=== PATIENT | male | born 1950 | race African-American/Black ===

== ENCOUNTER 2016-06-14 16:24 | Inpatient (IN) | payer MEDICARE ==
--- NOTE | ~2016-06-14 | CN ---
Consultation Report [facility] [address] [place]. 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 He has had excruciating pain in the past with this and required three sessions of injection of sodium thiosulfate. Two sessions were done in the operating room under anesthesia due to his excruciating pain and tenderness. He is now resolved from those areas of tenderness and pain and has some small superficial ulcers remaining, but no active calciphylaxis is noted. The patient is admitted through the emergency room with fever over 102, malaise and chills, and really no obvious lateralizing symptoms. He was having a little bit of swelling in his right lower extremity, but no increased pain, tenderness, or drainage. Workup to this point has shown gram-positive cocci in his blood cultures, and he is presently on Zosyn and vancomycin. His white blood cell counts were up at 18,000 and 19,000 respectively and platelets 110,000. Procalcitonin elevated at 68. He is subjectively much better now after therapy. He is afebrile. His chest x-ray showed no acute changes. He does not urinate and has not had any urinary output in many years. PHYSICAL EXAMINATION: GENERAL: He is a well-developed, well nourished black male, in no acute distress. HEENT: Showed no real lateralizing signs. NECK: Supple. CHEST: Clear. HEART: Regular rate and rhythm on a pacer, which was in his right chest. ABDOMEN: Soft and nontender. He has a very large, reducible 6 cm umbilical hernia defect and it is nontender. Bowel sounds were normal, and there were no real areas of tenderness in his abdomen. EXTREMITIES: Showed his left lower extremity to be relatively unremarkable with good pulses, but dry and atrophic skin noted. His right lower extremity showed nonacute clean ulcers and a clustered area on the posterior right calf that was 6.9 x 3.8 x 0.2 depth. It is nontender, there is no mass, minimal slough and good pulses on the right side. There was no palpable induration consistent with active calciphylaxis. NEUROLOGIC: The patient is alert and oriented x3, cooperative and good historian. IMPRESSION: The patient has sepsis of unclear etiology, although it is unlikely the right lower extremity is the source. He certainly has resolved quickly with antibiotic therapy. He clearly has resolving calciphylaxis in right lower extremity with residual ulcers with good positive results to intralesional injection of sodium thiosulfate. There is no obvious cellulitis noted. The recommendation will be continued local therapy, including Santyl to the ulcers and Lac-Hydrin to the dry skin. Work up other sources of sepsis, consider Consultation Report [address] [address] NAME: RUFINO ALARCON : 49 STATUS : ADM IN [facility]#: [id number] AGE: 66 ADM/REG DATE : 06/14/16 MR#: [id number] REPORT SERV DATE: 06/15/16 DICTATED BY: VIRGILIO BOWEN III DATE: 06/15/16 REPORT STATUS : Draft TRANSCRIBED BY: LULÚ DATE: 06/15/16 Infectious Disease consult, and consider CAT scan of the abdomen and pelvis to rule out some other potential etiology of the sepsis. Clearly, the right leg could possibly be the source of sepsis, but does not seem to be actively infected enough to be highly suspect. DAVID/LULÚ Virgilio Bowen III, M.D. / [id number] CC: Chetan Henley M.D. [facility]
--- NOTE | ~2016-06-14 | CN ---
Consultation Report [facility] [address] [place]. [address] NAME: RUFINO ALARCON : 49 STATUS : ADM IN [facility]#: [id number] AGE: 66 ADM/REG DATE : 06/14/16 MR#: [id number] REPORT SERV DATE: 06/17/16 DICTATED BY: FLAQUITO OLIVEIRA DATE: 06/17/16 REPORT STATUS : Draft TRANSCRIBED BY: MODJenni DATE: 06/17/16 CONSULTATION NOTE DATE OF CONSULTATION: 06/17/2016 PRIMARY REFRIGERATING TECHNICIAN: Kang Gutiérrez M.D. at [facility]. CHIEF COMPLAINT: Fever and chills. REASON FOR CONSULTATION: Transesophageal echocardiography. SOURCE: The patient and his chart. HISTORY OF PRESENT ILLNESS: Mr. Alarcon is a very pleasant 66-year-old white man with end- stage renal disease, on hemodialysis, as well as cardiomyopathy, and pacemaker placement and atrial fibrillation. He has been followed by Dr. Kang Gutiérrez of Cardiology at [facility]. He was in his usual state of health until recently when he developed fever and shaking chills and body aches, came to [facility] on 06/14/2016 and was found to have MRSA sepsis. He has been getting antibiotic therapy. He reports that the fistula in his left arm has swelled up. He has also had problems with his calciphylaxis in his feet. He has not had any chest pain, shortness of breath, palpitations, syncope, or edema. He has been seen by Dr. Yogesh Albarran, Infectious Disease, who requested a transesophageal echocardiogram. REVIEW OF SYSTEMS: All other systems are negative. ALLERGIES: NO KNOWN DRUG ALLERGIES. MEDICATIONS: At the time included amiodarone, Sensipar, hydrocodone, ProAmatine, Renvela. CARDIAC RISK FACTORS: Hypertension. Denies diabetes, cholesterol, tobacco, or family history. SOCIAL HISTORY: The patient lives in [place]. He is single. He has no children. He is retired. FAMILY HISTORY: His mother had stroke or myocardial infarction at age 80. PAST MEDICAL HISTORY: As per Dr. Henley's note includes end-stage renal disease, on hemodialysis Saturday, Saturday, and Saturday; hypertension; anemia; thrombocytopenia; atrial fibrillation, not on Coumadin due to bleeding; pacemaker placement approximately three years ago following a pericardial window for what sounds like pericarditis; prostate cancer; colitis; calciphylaxis, right leg; gout; hyperparathyroidism; cardiomyopathy with last LVEF of 25%; chronic systolic congestive heart failure; and coronary artery disease. Consultation Report [facility] [id number] [place]. [address] NAME: RUFINO ALARCON : 49 STATUS : ADM IN [facility]#: [id number] AGE: 66 ADM/REG DATE : 06/14/16 MR#: [id number] REPORT SERV DATE: 06/17/16 DICTATED BY: FLAQUITO OLIVEIRA DATE: 06/17/16 REPORT STATUS : Draft TRANSCRIBED BY: LULÚ DATE: 06/17/16 PHYSICAL EXAMINATION: GENERAL: He is a well-developed, well-nourished, elderly black man, in no acute distress. VITAL SIGNS: The blood pressure 107/53, pulse 73, temperature 98.2 degrees Fahrenheit, weight is 63.6 kg. HEENT: Sclerae anicteric. Lips without cyanosis. NECK: Carotids 2+ and symmetrical. No bruits with no JVD. No thyromegaly. LUNGS: Clear to auscultation. No use of accessory muscles. HEART: Regular rate and rhythm without murmur, gallop, or rub. ABDOMEN: Positive bowel sounds. Soft, nontender. EXTREMITIES: Upper right extremities swelling over the AV fistula access site and the left forearm palpable thrill. Distal right ankle is wrapped, 1+ edema. BACK: No CVA tenderness. MUSCULOSKELETAL: Good tone. NEURO: Alert and oriented x3. STUDIES: The EKG reveals AV paced rhythm. LABORATORY EXAMINATION: Includes blood cultures which 2/2 are positive for MRSA. The white count 11.6, hemoglobin 9.4, hematocrit 28.8, platelets 114 thousand. The sodium 140, potassium 4.6, chloride of 101, CO2 of 29, glucose is 79, BUN 30, creatinine 6.86, magnesium 1.8, phosphorus 3.7. The procalcitonin was 88. The lactate 1.6. The BNP level is greater than 5000. The Strep screen is negative. The influenza screen is negative. The chest x-ray, cardiomegaly, no new lung infiltrates. IMPRESSION: 1. Methicillin-resistant Staphylococcus aureus sepsis. 2. Possible infection, left forearm arteriovenous fistula. 3. Calciphylaxis, right lower extremity. 4. End-stage renal disease, on hemodialysis. 5. History of atrial fibrillation, not on Coumadin due to bleeding. 6. Status post pacemaker placement approximately three years ago at [facility]. 7. Status post pericardial window about three years ago at [facility]. Chronic systolic congestive heart failure with last left ventricular ejection fraction of 25%. Followed by Dr. Kang Gutiérrez at [facility]. 8. History of coronary artery disease. 9. Other medical problems as previously described. 10.Dr. Albarran of Infectious Diseases has requested a transesophageal echocardiography. RECOMMENDATIONS: Transesophageal echocardiography. The risks, benefits, and complications were discussed with the patient. He understands them and those of his alternatives and wishes to proceed. Questions answered. Plan in a.m. He has already had a transthoracic echocardiogram yesterday which revealed dilated left ventricle. LVEF 25%. Moderately dilated RV with moderate TR, at least mild pulmonary hypertension, 45 mmHg, may be Consultation Report [address] [address] NAME: RUFION ALARCON : 49 STATUS : ADM IN [facility]#: [id number] AGE: 66 ADM/REG DATE : 06/14/16 MR#: [id number] REPORT SERV DATE: 06/17/16 DICTATED BY: FLAQUITO OLIVEIRA DATE: 06/17/16 REPORT STATUS : Draft TRANSCRIBED BY: LULÚ DATE: 06/17/16 underestimation of true right ventricular systolic pressure, mild MR and moderate left atrial enlargement. NICK/LULÚ Flaquito Oliveira M.D. / [id number] CC: Chetan Henley M.D.
--- NOTE | ~2016-06-14 | TEE ---
Transesophageal Echocardiogram [facility] [address] [place]. [address] NAME: RUFINO ALARCON : 49 STATUS : ADM IN [facility]#: [id number] AGE: 66 ADM/REG DATE : 06/14/16 MR#: [id number] REPORT SERV DATE: 06/19/16 DICTATED BY: GRAHAM WEBBER DATE: 06/18/16 REPORT STATUS : Draft TRANSCRIBED BY: MODJenni DATE: 06/18/16 REQUESTING: Dr. Blanton of Cardiology and Dr. Henley of Nephrology. INDICATION FOR PROCEDURE: A 66-year-old male with end-stage renal disease and MRSA bacteremia to assess for possible endocarditis. He does have a permanent pacemaker in situ. TECH: TD. The overall quality of the study was fair. Due to dilated right-sided chambers, interrogation of the mitral valve was somewhat limited. Informed consent was obtained, signed, and on the chart prior to proceeding. A time-out was performed and sedation was per Anesthesia. Esophageal intubation was without difficulty. FINDINGS: VALVES: 1. The aortic valve morphology is trileaflet. There was aortic valve sclerosis with mildly restricted leaflet mobility. There were no valvular vegetations. There was trace aortic regurgitation. 2. The mitral valve was somewhat difficult to see due to lateral displacement and rotation with dilated right-sided chambers, it was reasonably well visualized. The mitral valve morphology is normal with mild annular calcification. Mitral leaflets were mildly thickened and sclerotic with mildly restricted mobility. There were no valvular vegetations seen. There was mild mitral regurgitation. 3. The pulmonic valve was grossly normal with adequate mobility. There was trace pulmonic regurgitation. 4. The tricuspid valve morphology was normal. The tricuspid anulus was dilated at 4.6 cm. There was pacemaker lead traversal noted. There was malcoaptation of the tricuspid leaflets with severe tricuspid regurgitation. Large volume jet with very dense triangular low velocity spectral Doppler signal. Fixed systolic flow was noted in the region of the hepatic vein and IVC. There were no valvular vegetations seen. CHAMBERS: 1. The left atrium was suboptimally visualized, but appeared mildly enlarged. 2. The left ventricle was poorly visualized and appeared grossly normal in size. There was severely reduced systolic function, EF 25%-30% with global hypocontractility. 3. The right atrium was severely dilated. Superior and inferior vena cava appeared enlarged. Pacemaker leads were noted. There was no mass or thrombus seen. There were no vegetations noted on pacemaker leads. 4. The right ventricle was moderately-severely dilated with moderate free wall hypocontractility. OTHER: The interatrial septum was seen and appeared intact by visual inspection with no evidence of interatrial shunt on color Doppler. There is no pericardial effusion. The descending thoracic aorta was seen on limited views and appeared grossly normal in caliber with mild atherosclerotic changes and no aneurysm or dissection. Transesophageal Echocardiogram [address] [address] NAME: RUFINO ALARCON : 49 STATUS : ADM IN [facility]#: [id number] AGE: 66 ADM/REG DATE : 06/14/16 MR#: [id number] REPORT SERV DATE: 06/19/16 DICTATED BY: GRAHAM WEBBER. DATE: 06/18/16 REPORT STATUS : Draft TRANSCRIBED BY: LULÚ DATE: 06/18/16 COMPLICATIONS: None. CONCLUSION: 1. NO VALVULAR VEGETATIONS OR EVIDENCE OF ENDOCARDITIS SEEN. 2. MODERATE-SEVERE RIGHT-SIDED CHAMBER ENLARGEMENTS. 3. DILATED TRICUSPID ANULUS, 4.6 CM. 4. SEVERE TRICUSPID REGURGITATION. 5. AORTIC VALVE SCLEROSIS WITHOUT STENOSIS. 6. MILD CALCIFIC DEGENERATION OF THE MITRAL VALVE WITH MILD REGURGITATION. 7. PERMANENT PACEMAKER IN SITU WITH NO VALVULAR VEGETATIONS SEEN ON THE LEADS. AEA/LULÚ Graham Webber M.D. / [id number] CC: Chetan Henley M.D.
--- NOTE | ~2016-06-14 | OP ---
Record Of Operation [facility] [address] [place]. [address] NAME: RUFINO ALARCON : 49 STATUS : DIS IN PAT#: [id number] AGE: 66 ADM/REG DATE : 06/14/16 MR#: [id number] REPORT SERV DATE: 08/22/16 DICTATED BY: DAVID TAMAYO DATE: 08/21/16 REPORT STATUS : Draft TRANSCRIBED BY: MODL DATE: 08/21/16 DATE OF PROCEDURE: 06/21/2016 PREPROCEDURE DIAGNOSIS: Abscess left mid AV graft. POSTOPERATIVE DIAGNOSIS: Abscess left mid AV graft. Infected graft of 2 cm. PROCEDURE PERFORMED: 1. Revision of left arm AV graft with new interposition graft Flixene. 2. I and D of abscess. 3. Vacuum placement. ATTENDING: David Tamayo M.D. ANESTHESIA: General. COMPLICATIONS: None. INDICATION FOR PROCEDURE: Secondary to this very pleasant 66-year-old patient of Dr. Chetan Henley's being evaluated for an abscess of the left arm AV graft. There was a short segment infection and I felt that this could be bypassed around. This was completed. DETAILS OF THE PROCEDURE: The patient was brought to the operating room, placed in supine position, prepped and draped in a routine sterile fashion with attention to the left upper extremity. Incision was then made in the proximal graft as well as the distal graft and the graft was then clamped and divided after 3000 units of heparin was given and allowed to circulate. A new Flixene graft was then tunneled in a circular pattern around the upper arm to gain access to the proximal and the distal segments. The proximal anastomosis was then performed first end-to-side with a HS6 Prolene running continuous stitch. Again the distal graft was beveled to perform an anastomosis and this was attached to the HS6 Prolene. Flow was restored within the graft. Next, the graft that was remaining was then debrided away and then it was closed and then healthy tissue was then closed around the proximal and distal anastomoses. Next, the graft itself where the infection was, was then opened and sharply debrided down to the graft. All of this segment of the graft was then removed and intact. The area was then copiously debrided. All the pus was removed and cultured. The wound was then irrigated significantly with saline approximately greater than 1 L and then the vac was placed. This was held on with an Ioban and suction was applied. The patient tolerated the procedure well and transferred to recovery. CL/MODL David Record Of Operation [address] [address] NAME: RUFINO ALARCON : 49 STATUS : DIS IN PAT#: [id number] AGE: 66 ADM/REG DATE : 06/14/16 MR#: [id number] REPORT SERV DATE: 08/22/16 DICTATED BY: DAVID TAMAYO DATE: 08/21/16 REPORT STATUS : Draft TRANSCRIBED BY: MODJenni DATE: 08/21/16 Rashid Tamayo / [id number] CC: David Tamayo M.D.
--- NOTE | ~2016-06-14 | OP ---
Record Of Operation [facility] [address] [place]. [address] NAME: RUFINO ALARCON : 49 STATUS : DIS IN PAT#: [id number] AGE: 66 ADM/REG DATE : 06/14/16 MR#: [id number] REPORT SERV DATE: 07/02/16 DICTATED BY: DAVID TAMAYO DATE: 07/02/16 REPORT STATUS : Draft TRANSCRIBED BY: LULÚ DATE: 07/02/16 DATE OF PROCEDURE: 06/23/2016 PREPROCEDURE DIAGNOSIS: Left forearm wound, status post I and D abscess with VAC. POSTOPERATIVE DIAGNOSIS: Left forearm wound, status post I and D abscess with VAC. PROCEDURE PERFORMED: 1. Fistulogram, left upper extremity. 2. Delayed secondary closure of left arm wound, 5 cm. SURGEON: David Tamayo M.D. ANESTHESIA: Local MAC. COMPLICATIONS: None. INDICATIONS FOR PROCEDURE: Secondary to this very pleasant 56-year-old gentleman who presents with an infected aspect of his left arm AV graft. He is status post resection of this and then rerouting to a new location. The abscess portion was I and D' ed and VAC' ed and the patient presents back for re-evaluation of the wound to determine if closure is possible. Additionally at dialysis, had difficulty with cannulation and there was concern for thrombosis of the graft. Recommendations were made for fistulogram. DETAILS OF PROCEDURE: The patient was brought to the endovascular operating room, placed in supine position, prepped and draped in routine sterile fashion with attention to the left upper extremity. The fistula was then cannulated, micropuncture needle followed by a wire and a sheath. A fistulogram was then performed showing widely patent graft and excellent flow through the graft, flow into the venous system and central venous system. No evidence of obstruction. The sheath was then removed and a small stitch was placed. Next, the wound was then copiously irrigated. It was very healthy with good granulation tissue at the base and the wound was then closed with interrupted vertical mattress 4-0 Monocryl suture. 5 cm of the wound was then closed. Dressings were applied. The patient tolerated the procedure well. TYSON/LULÚ David Tamayo M.D. / [id number] CC: Chetan Henley M.D.
--- NOTE | ~2016-06-14 | HP ---
History And Physical [facility] [id number] [place]. [address] NAME: RUFINO ALARCON : 48 STATUS : ADM [facility] PAT#: [id number] AGE: 66 ADM/REG DATE : 06/14/16 MR#: [id number] REPORT SERV DATE: 06/14/16 DICTATED BY: HIRA DALTON DATE: 06/14/16 REPORT STATUS : Draft TRANSCRIBED BY: MODJenni DATE: 06/14/16 DATE OF ADMISSION: 06/14/2016 INDICATION FOR ADMISSION: Fever, chills. HISTORY OF PRESENT ILLNESS: Mr. Alarcon is a 66-year-old male, who is followed on chronic dialysis Saturday, Saturday, and Saturday by left upper extremity AV fistula. He dialyzed last on Saturday and indicates that he called the ambulance due to hard chills and feeling bad. He was having some abdominal pain. Denied any respiratory or symptoms. He is being followed in the [facility] for calciphylaxis involving his right lower extremity and was to be evaluated by Dr. Bowen on 06/14/2016. When he was picked up by the ambulance, his temp apparently was recorded at 102 degrees, and in the ER, it was 102.7. His white count was 18.6 and his blood pressure was 93/49. Chest x-ray revealed no infiltrate, but there was question of right middle lobe changes. He denied any purulent sputum or hemoptysis or pleuritic chest pain. PAST MEDICAL HISTORY: End-stage renal disease, dialyzing Saturday, Saturday, and Saturday at [facility] by a left upper extremity AV fistula; hypertension, but currently on midodrine; anemia; atrial fibrillation, currently not on Coumadin due to history of GI bleed; remote pericardial window; remote pacemaker; prostate CA and colitis; calciphylaxis of right lower extremity; gout; hyperparathyroidism; cardiomyopathy, ejection fraction 25%; history of CHF; coronary artery disease. SOCIAL HISTORY: The patient lives alone. Occasionally uses alcohol. He is disabled. No tobacco or illicit drug use. FAMILY HISTORY: Positive for hypertension. No end-stage renal disease. HOME MEDICATIONS: Amiodarone, Sensipar, hydrocodone with APAP, ProAmatine, Renvela, Virt- Caps. ALLERGIES: NONE KNOWN. REVIEW OF SYSTEMS: HEENT: No change in visual acuity. No epistaxis. No otic infection. No pharyngitis. PULMONARY: He has some shortness of breath, intermittent cough. No hemoptysis. No purulent sputum production. No pleuritic chest pain. CARDIAC: Denies chest pain. No lower extremity edema. GI: Some abdominal discomfort. No nausea, vomiting. Appetite has been stable. : Does not void. MUSCULOSKELETAL: Pain in the right lower extremity. INTEGUMENT: Chronic wound in the right lower extremity. No rash. No itching. NEUROLOGIC: No lateralizing weakness or seizure disorder. Remainder of 12-point review of systems is negative. History And Physical [address] [place]. [address] NAME: RUFINO ALARCON : 48 STATUS : ADM [facility] PAT#: [id number] AGE: 66 ADM/REG DATE : 06/14/16 MR#: [id number] REPORT SERV DATE: 06/14/16 DICTATED BY: HIRA DALTON DATE: 06/14/16 REPORT STATUS : Draft TRANSCRIBED BY: LULÚ DATE: 06/14/16 PHYSICAL EXAMINATION: VITAL SIGNS: Blood pressure 93/49, temp 102.7, pulse 80, respiratory rate 16, with 98% sat on room air. GENERAL: Pleasant male, alert, cooperative. HEENT: Eyes, no scleral icterus. Pupils equal, reactive to light. Extraocular movement intact. Nares patent. No discharge. Throat, no injection. Mucous membranes moist. NECK: No thyromegaly, masses, or bruits. CHEST/LUNGS: Late crackles at bases posteriorly. No wheezing. No evidence of consolidation. CARDIAC: Regular rhythm. 1 to 2 over 6 systolic ejection murmur. No gallop. No rub. ABDOMEN: Periumbilical hernia. No tenderness. No masses. No organomegaly. AND RECTAL: Not performed. EXTREMITIES: Right lower extremity wrapped. No left lower extremity edema. Left upper extremity AV fistula with good bruit and thrill. DERMIS: Right lower extremity wrapped. Otherwise, no skin lesions noted. NEUROLOGIC: Cranial nerves intact. No lateralizing weakness. MUSCULOSKELETAL: No deformity. No joint tenderness. IMPRESSION: 1. Fever, leukocytosis, possible early sepsis. Would be concerned about right lower extremity wound as a primary source. 2. End-stage renal disease, dialyzing Saturday, Saturday, and Saturday at [facility] by left forearm arteriovenous fistula. 3. History of hypertension, currently on ProAmatine. 4. Anemia. 5. Thrombocytopenia. 6. Atrial fibrillation. Currently, not on Coumadin due to history of gastrointestinal bleeding. 7. Remote pacemaker. 8. Remote pericardial window. 9. Prostate cancer. 10.Colitis. 11.Calciphylaxis of right lower extremity. 12.Gout. 13.Hyperparathyroidism. 14.Cardiomyopathy, ejection fraction of 25%. 15.History of coronary artery disease. 16.History of congestive heart failure. PLAN: 1. Cultures. 2. Antibiotics. 3. Consult with Dr. Bowen for management of right lower extremity calciphylaxis. 4. We will consider ID consult. History And Physical [address] [address] NAME: RUFINO ALARCON : 48 STATUS : ADM [facility] PAT#: [id number] AGE: 66 ADM/REG DATE : 06/14/16 MR#: [id number] REPORT SERV DATE: 06/14/16 DICTATED BY: HIRA DALTON DATE: 06/14/16 REPORT STATUS : Draft TRANSCRIBED BY: LULÚ DATE: 06/14/16 TOMMY/LULÚ Hira Dalton M.D. / [id number] CC: Hira Dalton M.D.
--- NOTE | ~2016-06-14 | DS ---
Discharge Summary [facility] [address] [place]. [address] NAME: RUFINO ALARCON : 48 STATUS : DIS IN PAT#: [id number] AGE: 66 ADM/REG DATE : 06/14/16 MR#: [id number] REPORT SERV DATE: 07/05/16 DICTATED BY: HIRA DALTON DATE: 07/04/16 REPORT STATUS : Draft TRANSCRIBED BY: LULÚ DATE: 07/04/16 Data Collection from hospitalization DISCHARGE DIAGNOSES: 1. Methicillin-resistant Staphylococcus aureus bacteremia. 2. Right lower extremity calciphylaxis. 3. Ejection fraction 25%-30%. 4. End-stage renal disease. 5. Thrombocytopenia. 6. Abscess. 7. Hypotension. 8. Atrial fibrillation. 9. Anemia. 10.History of prostate cancer. 11.History of colitis. 12.Gout. 13.Hyperparathyroidism. 14.Cardiomyopathy. 15.History of congestive heart failure. 16.Coronary artery disease. CONSULTATIONS: Dr. Flaquito Blanton, Dr. Jose Bowen III, Dr. David Tamayo, and Dr. Yogesh Albarran. PROCEDURES PERFORMED: Fistulogram, left upper extremity. Delayed secondary closure of left arm wound, 5 cm, 06/23/2016. Arteriogram and placement of arteriovenous graft, 06/21/2016. PATHOLOGY: ( ) DISCHARGE MEDICATIONS: Cordarone 200 mg twice a day, Sensipar 60 mg daily, [place] 5/325 one tablet three times a day as needed, ProAmatine 10 mg every evening, Renvela 1600 mg with meals, Virt-Caps one capsule every evening. CONDITION AT DISCHARGE: Stable. DISPOSITION: The patient was discharged home on a renal diet with activities as instructed. He would follow up with Dr. David Tamayo as instructed. He would follow up with the [facility] as instructed. HOSPITAL COURSE: This is a 66-year-old man, who is followed on chronic dialysis on Mondays, Wednesdays, and Fridays via a left upper extremity AV fistula. He dialyzed on Saturday prior to this admission and indicates that he called the ambulance due to hard chills and feeling bad. He was having some abdominal pain. He denied any respiratory or symptoms. [facility] calciphylaxis involving his right lower extremity and was going to be evaluated by Dr. Bowen on 06/14/2016. He was picked up by the ambulance and his temperature apparently was reported at 102 and in the emergency room, it was 102.7. His white count was 18.6. His blood pressure was 93/49. Chest x-ray revealed no infiltrate, but there was a question of right middle lobe changes. He denied Discharge Summary [address] [place]. [address] NAME: RUFINO ALARCON : 48 STATUS : DIS IN PAT#: [id number] AGE: 66 ADM/REG DATE : 06/14/16 MR#: [id number] REPORT SERV DATE: 07/05/16 DICTATED BY: HIRA DALTON DATE: 07/04/16 REPORT STATUS : Draft TRANSCRIBED BY: LULÚ DATE: 07/04/16 any purulent sputum or hemoptysis or pleuritic chest pain. He was admitted to the hospital at this time for further evaluation and treatment. Upon admission, cultures were obtained. Antibiotics were started. He was started on Kayexalate. A dose of midodrine was given as well as a dose of IV albumin. The following day, hemodialysis therapy was performed. He was seen by Dr. Jose Bowen III. He had [facility] been [facility] for his second bout of calciphylaxis to the right lower extremity. He had had excruciating pain in the past with this and required three sessions of injection of sodium thiosulfate. Two sessions were done in the operating room under anesthesia due to the excruciating pain and tenderness. He had resolved from those areas of tenderness and pain and has some small superficial ulcers remaining, but no active calciphylaxis was noted. Local therapy would be continued, including Santyl and Lac- Hydrin to the dry skin. Echocardiogram was performed. He said that he had some abdominal discomfort and diarrhea after receiving the Kayexalate. Blood cultures were growing gram- positive cocci. He was on vancomycin and Zosyn. On 06/17/2016, he was seen by Dr. Yogesh Albarran. He recommended that we continue vancomycin and discontinue the Zosyn. A transesophageal echocardiogram was requested. Repeat blood cultures would be performed. The patient was also seen by Dr. Flaquito Blanton regarding transesophageal echocardiography. He had not had any chest pain, shortness of breath, palpitations, syncope, or edema. Blood cultures were positive for MRSA. White blood cell count was 11.6. His strep screen was negative. Influenza screen was negative. Creatinine level was 6.86. Chest x-ray revealed cardiomegaly with no new lung infiltrates. Transesophageal echocardiography was recommended. He had already undergone transthoracic echocardiogram, which revealed dilated left ventricle with left ventricular ejection fraction of 25%. He had moderately dilated right ventricle with moderate tricuspid regurgitation and at least, mild pulmonary hypertension of 45 mmHg. This may be underestimation of true right ventricular systolic pressure, mild mitral regurgitation, and moderate left atrial enlargement. On 06/18/2016, transesophageal echocardiogram was performed. No vegetations or endocarditis were seen. He does have moderate right-sided chamber enlargement-moderate to severe. Hemodialysis therapy continued. On 06/19/2016, he was feeling better. He was afebrile. He had no new complaints. His abdomen was soft and nontender. He was seen in consultation by Dr. Davdi Tamayo. The patient has an abscess on the lower area of the left graft. The patient said he had dialyzed on Saturday without difficulty. White blood cell count had decreased to 9. On 06/20/2016, he had no new symptoms. He remained afebrile. Repeat blood cultures were negative thus far. Vancomycin was continued. On 06/21/2016, he was taken to the endovascular operating room, where he underwent the above-mentioned procedure. He tolerated this well and there were no complications. On 06/22/2016, he had no new symptoms. His lungs were clear. The left AV graft wound VAC was intact. Dialysis should cannulate the area that was marked. The VAC pack would be removed the following Saturday. The left AV graft was patent. The patient had had an infected aspect of the left arm AV graft and he was status post resection of this with rerouting to a new location. On 06/23/2016, it was felt that the patient should be taken back to the endovascular operating room for re-evaluation of the wounds to determine if closure was possible. Additionally, at dialysis, there was difficulty with cannulation and Discharge Summary [address] [place]. [address] NAME: RUFINO ALARCON : 48 STATUS : DIS IN [facility]#: [id number] AGE: 66 ADM/REG DATE : 06/14/16 MR#: [id number] REPORT SERV DATE: 07/05/16 DICTATED BY: HIRA DALTON DATE: 07/04/16 REPORT STATUS : Draft TRANSCRIBED BY: LULÚ DATE: 07/04/16 there was concern for thrombosis of the graft. It was felt that he should undergo a fistulogram. He was taken to the endovascular operating room by Dr. David Tamayo, where he underwent the above-mentioned procedure. He tolerated this well and there were no complications. The following day, he had no new complaints. White count had increased to 13. Vancomycin was going to be continued. Discharge planning was performed. On 06/25/2016, he was feeling better. He remained afebrile. The left arm wound looked clean. Hemodialysis therapy continued. Discharge instructions were given. Due to his improved and stable condition, he was discharged home with the above-stated instructions. Information collected by: Jennifer Lu I submit the above information as my discharge summary. SALVADOR/LULÚ Hira Dalton M.D. / [id number] CC: Rashid Ponce M.D. Mark Anderson, M.D. Rashid Avila III, M.D.
[~2016-06-14 16:24] MED LIST: ALTA5 PO; CAT1 PO; CORDARONE PO; LIQUID TEARS OPH; LOP25 PO; NORCO1 TA1 PO; NORV10 PO; PRILO PO; PROAMATINE10 MG PO; RENA-VITE PO; RENAGEL800 PO; RENVELA800 MG PO; SENSIPAR60 MG PO; Z100 PO; [UNRECOGNIZED DRUG - OTHER] PO
[2016-06-14 16:40] LABS: BASOPHILS 0.2 %; BASOPHILS ABSOLUTE 0.03 10/3/uL (0.0-0.16); EOSINOPHILS 0.1 %; EOSINOPHILS ABSOLUTE 0.01 10/3/uL (0.0-0.53); HEMOGLOBIN 9.2 g/dL (13.6-17.8); IMMATURE GRANULOCYTES 0.7 %; IMMATURE GRANULOCYTES ABSOLUTE 0.13 10/3/uL (0.0-0.11); LYMPHOCYTES 8.3 %; LYMPHOCYTES ABSOLUTE 1.54 10/3/uL (0.67-4.30); MEAN CORPUS HGB CONC 31.8 g/dL (32.0-36.0); MEAN CORPUSCULAR HEMOGLOB 25.8 pg (26.0-34.0); MEAN CORPUSCULAR VOLUME 81.2 fL (80-100); MEAN PLATELET VOLUME 10.8 fL (9.2-13.0); MONOCYTES 6.7 %; MONOCYTES ABSOLUTE 1.24 10/3/uL (0.21-1.20); NEUTROPHILS ABSOLUTE 15.68 10/3/uL (2.02-8.40); RBC DISTRIBUTION WIDTH 16.5 % (12.0-16.0); RED CELL COUNT 3.56 10/6/uL (4.7-6.1)
[2016-06-14 16:41] LABS: ER CBC TAT 0 Hrs 07 Mins; HEMATOCRIT 28.9 % (40.0-51.0); MANUAL DIFF NO %; PLATELET COUNT 88 10/3/uL (150-400); WHITE BLOOD CELLS 18.6 10/3/uL (4.5-10.5)
[2016-06-14 16:49] LABS: INFLUENZA A SCREEN NEGATIVE (NEGATIVE); INFLUENZA B SCREEN NEGATIVE (NEGATIVE)
[2016-06-14 16:59] LABS: A/G RATIO 0.5 (0.7-1.9); ALKALINE PHOSPHATASE 130 U/L (45-117); BUN (BLOOD UREA NITROGEN) 35 MG/DL (6-23); CALCIUM, SERUM 9.2 MG/DL (8.5-10.4); CHLORIDE, SERUM 99 MMOL/L (96-112); CO2 (CARBON DIOXIDE) 27 MMOL/L (24-34); CREATININE 7.79 MG/DL (0.70-1.30); GFR AFRICAN AMERICAN 8 ML/MIN (>=60); GFR NON AFRICAN AMERICAN 6 ML/MIN (>=60); GLOBULIN 5.9 G/DL (2.5-4.1); GLUCOSE, SERUM 81 MG/DL (60-99); POTASSIUM, SERUM 5.9 MMOL/L (3.5-5.3); SGOT(AST) 24 U/L (5-40); SGPT(ALT) 13 U/L (5-65); SODIUM, SERUM 139 MMOL/L (135-148); TOTAL BILIRUBIN 1.5 MG/DL (0-1.2); TOTAL PROTEIN 8.9 G/DL (6.0-8.5)
[2016-06-14] MEDS ORDERED: CORDARONE PO (17:20)
[2016-06-14] MEDS ORDERED: NORCO1 TA1 PO (17:20)
[2016-06-14] MEDS ORDERED: PROAMATINE10 MG PO (17:20)
[2016-06-14] MEDS ORDERED: SENSIPAR60 MG PO (17:21)
[2016-06-14] MEDS ORDERED: RENVELA800 MG PO (17:21)
[2016-06-14] MEDS ORDERED: VIRT-CAPS PO (17:22)
[2016-06-14 18:01] LABS: LACTATE 1.6 MMOL/L (0.3-2.4)
[2016-06-15 05:38] LABS: BASOPHILS 0.2 %; BASOPHILS ABSOLUTE 0.03 10/3/uL (0.0-0.16); EOSINOPHILS 0 %; HEMOGLOBIN 10.4 g/dL (13.6-17.8); IMMATURE GRANULOCYTES 0.3 %; IMMATURE GRANULOCYTES ABSOLUTE 0.06 10/3/uL (0.0-0.11); LYMPHOCYTES 4.1 %; LYMPHOCYTES ABSOLUTE 0.78 10/3/uL (0.67-4.30); MEAN CORPUS HGB CONC 32.4 g/dL (32.0-36.0); MEAN CORPUSCULAR VOLUME 80.3 fL (80-100); MEAN PLATELET VOLUME 12.3 fL (9.2-13.0); MONOCYTES ABSOLUTE 1.73 10/3/uL (0.21-1.20); NEUTROPHILS 86.4 %; NEUTROPHILS ABSOLUTE 16.56 10/3/uL (2.02-8.40); PLATELET COUNT 110 10/3/uL (150-400); RBC DISTRIBUTION WIDTH 16.6 % (12.0-16.0); WHITE BLOOD CELLS 19.2 10/3/uL (4.5-10.5)
[2016-06-15 05:45] LABS: HEMATOCRIT 32.1 % (40.0-51.0)
[2016-06-15 05:46] LABS: MANUAL DIFF NO %
[2016-06-15 05:49] LABS: ALBUMIN 3.2 G/DL (3.5-5.0); CHLORIDE, SERUM 99 MMOL/L (96-112); CO2 (CARBON DIOXIDE) 24 MMOL/L (24-34); GFR AFRICAN AMERICAN 7 ML/MIN (>=60); GFR NON AFRICAN AMERICAN 6 ML/MIN (>=60); GLUCOSE, SERUM 93 MG/DL (60-99); SODIUM, SERUM 136 MMOL/L (135-148); T4 (THYROXINE) TOTAL 11.3 MCG/DL (4.5-12.0)
[2016-06-15 05:50] LABS: BUN (BLOOD UREA NITROGEN) 44 MG/DL (6-23); CREATININE 8.61 MG/DL (0.70-1.30)
[2016-06-15 05:57] LABS: INTACT PTH (ICMA) 927.9 PG/ML (10.0-65.0)
[2016-06-15 06:13] LABS: PROCALCITONIN 68.08 ng/mL (<0.5)
[2016-06-15 06:19] LABS: PLATELET ESTIMATE DEC (ADEQUATE)
[2016-06-15 06:20] LABS: ANISOCYTOSIS 1+ (5-10/OIF) (0-5/OIF)
[2016-06-16 05:15] LABS: ALBUMIN 2.9 G/DL (3.5-5.0); CHLORIDE, SERUM 101 MMOL/L (96-112); GLUCOSE, SERUM 79 MG/DL (60-99); SODIUM, SERUM 140 MMOL/L (135-148)
[2016-06-16 05:16] LABS: BUN (BLOOD UREA NITROGEN) 30 MG/DL (6-23); CALCIUM, SERUM 8.7 MG/DL (8.5-10.4); CO2 (CARBON DIOXIDE) 29 MMOL/L (24-34); CREATININE 6.86 MG/DL (0.70-1.30); GFR AFRICAN AMERICAN 9 ML/MIN (>=60); GFR NON AFRICAN AMERICAN 8 ML/MIN (>=60); PHOSPHORUS, SERUM 3.7 MG/DL (2.5-4.5); POTASSIUM, SERUM 4.6 MMOL/L (3.5-5.3)
[2016-06-16 06:00] LABS: PROCALCITONIN 88.22 ng/mL (<0.5)
[2016-06-16 06:34] LABS: BASOPHILS 0.4 %; BASOPHILS ABSOLUTE 0.05 10/3/uL (0.0-0.16); EOSINOPHILS 0.9 %; HEMOGLOBIN 9.4 g/dL (13.6-17.8); LYMPHOCYTES 14.6 %; LYMPHOCYTES ABSOLUTE 1.69 10/3/uL (0.67-4.30); MEAN CORPUS HGB CONC 32.6 g/dL (32.0-36.0); MEAN CORPUSCULAR HEMOGLOB 25.5 pg (26.0-34.0); MEAN CORPUSCULAR VOLUME 78.3 fL (80-100); MONOCYTES 7.2 %; MONOCYTES ABSOLUTE 0.84 10/3/uL (0.21-1.20); NEUTROPHILS 76.9 %; NEUTROPHILS ABSOLUTE 8.92 10/3/uL (2.02-8.40); PLATELET COUNT 114 10/3/uL (150-400); RBC DISTRIBUTION WIDTH 16.4 % (12.0-16.0); RED CELL COUNT 3.68 10/6/uL (4.7-6.1); WHITE BLOOD CELLS 11.6 10/3/uL (4.5-10.5)
[2016-06-16 06:39] LABS: HEMATOCRIT 28.8 % (40.0-51.0); MANUAL DIFF NO %
[2016-06-16 07:31] LABS: PLATELET ESTIMATE SLT DEC (ADEQUATE)
[2016-06-16 07:32] LABS: RBC MORPHOLOGY NORM (NORMAL)
[2016-06-18 06:34] LABS: INTERNATIONAL NORMAL RATI 1.3 UNITS (-); PROTIME (NOT ORD) 16.2 SEC (12.0-14.5)
[2016-06-18 06:41] LABS: ALBUMIN 2.8 G/DL (3.5-5.0); BUN (BLOOD UREA NITROGEN) 46 MG/DL (6-23); CALCIUM, SERUM 7.7 MG/DL (8.5-10.4); CHLORIDE, SERUM 100 MMOL/L (96-112); CO2 (CARBON DIOXIDE) 26 MMOL/L (24-34); GFR AFRICAN AMERICAN 5 ML/MIN (>=60); GFR NON AFRICAN AMERICAN 5 ML/MIN (>=60); GLUCOSE, SERUM 87 MG/DL (60-99); PHOSPHORUS, SERUM 2.6 MG/DL (2.5-4.5); POTASSIUM, SERUM 4.5 MMOL/L (3.5-5.3); SODIUM, SERUM 140 MMOL/L (135-148)
[2016-06-18 07:17] LABS: HEMATOCRIT 31.6 % (40.0-51.0); HEMOGLOBIN 10.1 g/dL (13.6-17.8); MEAN CORPUSCULAR HEMOGLOB 24.9 pg (26.0-34.0); PLATELET COUNT 112 10/3/uL (150-400); RBC DISTRIBUTION WIDTH 16.3 % (12.0-16.0); RED CELL COUNT 4.05 10/6/uL (4.7-6.1)
[2016-06-18 07:18] LABS: MANUAL DIFF YES %
[2016-06-18 07:31] LABS: BAND NEUTROPHILS 3 %; BASOPHILS 3 %; BASOPHILS ABSOLUTE (CALC) 0.27 10/3/uL (0.0-0.16); EOSINOPHILS 8 %; EOSINOPHILS ABSOLUTE (CALC) 0.72 10/3/uL (0.0-0.53); LYMPHOCYTES 22 %; LYMPHOCYTES ABSOLUTE (CALC) 1.98 10/3/uL (0.67-4.30); MONOCYTES 7 %; MONOCYTES ABSOLUTE (CALC) 0.63 10/3/uL (0.21-1.20); PLATELET ESTIMATE SLT DEC (ADEQUATE); SEGMENTED NEUTROPHIL (0) 57 %; TOTAL NUCLEATED CELLS 100
[2016-06-18 07:32] LABS: POLYCHROMASIA 1+ (2-5/OIF) (0-1/OIF)
[2016-06-20 13:27] LABS: BASOPHILS 1.1 %; EOSINOPHILS 4.2 %; EOSINOPHILS ABSOLUTE 0.37 10/3/uL (0.0-0.53); HEMATOCRIT 28.8 % (40.0-51.0); HEMOGLOBIN 9.2 g/dL (13.6-17.8); IMMATURE GRANULOCYTES ABSOLUTE 0.09 10/3/uL (0.0-0.11); LYMPHOCYTES 21.7 %; LYMPHOCYTES ABSOLUTE 1.93 10/3/uL (0.67-4.30); MEAN CORPUS HGB CONC 31.9 g/dL (32.0-36.0); MEAN CORPUSCULAR HEMOGLOB 25.1 pg (26.0-34.0); MEAN CORPUSCULAR VOLUME 78.7 fL (80-100); MEAN PLATELET VOLUME 11.5 fL (9.2-13.0); MONOCYTES 9.7 %; MONOCYTES ABSOLUTE 0.86 10/3/uL (0.21-1.20); NEUTROPHILS 62.3 %; NEUTROPHILS ABSOLUTE 5.54 10/3/uL (2.02-8.40); NUCLEATED RED BLOOD CELLS 0.8 /100WBC (0-0); RBC DISTRIBUTION WIDTH 16.2 % (12.0-16.0); RED CELL COUNT 3.66 10/6/uL (4.7-6.1); WHITE BLOOD CELLS 8.9 10/3/uL (4.5-10.5)
[2016-06-20 13:28] LABS: MANUAL DIFF NO %; PLATELET COUNT 157 10/3/uL (150-400)
[2016-06-20 13:34] LABS: ALBUMIN 2.6 G/DL (3.5-5.0); BUN (BLOOD UREA NITROGEN) 36 MG/DL (6-23); CALCIUM, SERUM 7.5 MG/DL (8.5-10.4); CHLORIDE, SERUM 105 MMOL/L (96-112); CO2 (CARBON DIOXIDE) 26 MMOL/L (24-34); CREATININE 9.45 MG/DL (0.70-1.30); GFR AFRICAN AMERICAN 6 ML/MIN (>=60); GFR NON AFRICAN AMERICAN 5 ML/MIN (>=60); GLUCOSE, SERUM 128 MG/DL (60-99); PHOSPHORUS, SERUM 2.8 MG/DL (2.5-4.5); POTASSIUM, SERUM 3.9 MMOL/L (3.5-5.3); SODIUM, SERUM 142 MMOL/L (135-148)
[2016-06-22 08:57] LABS: BASOPHILS ABSOLUTE 0.09 10/3/uL (0.0-0.16); EOSINOPHILS 3.8 %; EOSINOPHILS ABSOLUTE 0.34 10/3/uL (0.0-0.53); HEMATOCRIT 29.9 % (40.0-51.0); HEMOGLOBIN 9.5 g/dL (13.6-17.8); IMMATURE GRANULOCYTES 0.8 %; IMMATURE GRANULOCYTES ABSOLUTE 0.07 10/3/uL (0.0-0.11); LYMPHOCYTES 19.2 %; LYMPHOCYTES ABSOLUTE 1.71 10/3/uL (0.67-4.30); MEAN CORPUS HGB CONC 31.8 g/dL (32.0-36.0); MEAN CORPUSCULAR HEMOGLOB 25.7 pg (26.0-34.0); MEAN CORPUSCULAR VOLUME 80.8 fL (80-100); MONOCYTES 7.9 %; NEUTROPHILS 67.3 %; PLATELET COUNT 176 10/3/uL (150-400); RBC DISTRIBUTION WIDTH 17.1 % (12.0-16.0); WHITE BLOOD CELLS 8.9 10/3/uL (4.5-10.5)
[2016-06-22 09:00] LABS: MANUAL DIFF NO %
[2016-06-22 09:12] LABS: ALBUMIN 2.8 G/DL (3.5-5.0); BUN (BLOOD UREA NITROGEN) 27 MG/DL (6-23); CALCIUM, SERUM 7.2 MG/DL (8.5-10.4); CHLORIDE, SERUM 104 MMOL/L (96-112); CO2 (CARBON DIOXIDE) 26 MMOL/L (24-34); CREATININE 8.38 MG/DL (0.70-1.30); GFR AFRICAN AMERICAN 7 ML/MIN (>=60); GFR NON AFRICAN AMERICAN 6 ML/MIN (>=60); GLUCOSE, SERUM 77 MG/DL (60-99); PHOSPHORUS, SERUM 3.1 MG/DL (2.5-4.5); POTASSIUM, SERUM 4.9 MMOL/L (3.5-5.3); SODIUM, SERUM 141 MMOL/L (135-148)
[2016-06-23 15:03] LABS: BASOPHILS 0.6 %; BASOPHILS ABSOLUTE 0.06 10/3/uL (0.0-0.16); EOSINOPHILS 2.9 %; EOSINOPHILS ABSOLUTE 0.31 10/3/uL (0.0-0.53); HEMATOCRIT 28.1 % (40.0-51.0); HEMOGLOBIN 9.1 g/dL (13.6-17.8); IMMATURE GRANULOCYTES 0.8 %; IMMATURE GRANULOCYTES ABSOLUTE 0.08 10/3/uL (0.0-0.11); LYMPHOCYTES 18.5 %; LYMPHOCYTES ABSOLUTE 1.95 10/3/uL (0.67-4.30); MEAN CORPUS HGB CONC 32.4 g/dL (32.0-36.0); MEAN CORPUSCULAR HEMOGLOB 25.6 pg (26.0-34.0); MEAN CORPUSCULAR VOLUME 78.9 fL (80-100); MEAN PLATELET VOLUME 10.4 fL (9.2-13.0); MONOCYTES 6.9 %; MONOCYTES ABSOLUTE 0.73 10/3/uL (0.21-1.20); NEUTROPHILS 70.3 %; PLATELET COUNT 159 10/3/uL (150-400); RED CELL COUNT 3.56 10/6/uL (4.7-6.1); WHITE BLOOD CELLS 10.5 10/3/uL (4.5-10.5)
[2016-06-23 15:08] LABS: MANUAL DIFF NO %
[2016-06-23 15:17] LABS: ALBUMIN 2.7 G/DL (3.5-5.0); CHLORIDE, SERUM 104 MMOL/L (96-112); CO2 (CARBON DIOXIDE) 26 MMOL/L (24-34); GLUCOSE, SERUM 82 MG/DL (60-99); PHOSPHORUS, SERUM 3.1 MG/DL (2.5-4.5); POTASSIUM, SERUM 4.6 MMOL/L (3.5-5.3); SODIUM, SERUM 142 MMOL/L (135-148)
[2016-06-23 15:18] LABS: BUN (BLOOD UREA NITROGEN) 37 MG/DL (6-23); CALCIUM, SERUM 6.5 MG/DL (8.5-10.4); GFR AFRICAN AMERICAN 5 ML/MIN (>=60); GFR NON AFRICAN AMERICAN 5 ML/MIN (>=60)
[2016-06-24 07:30] LABS: BASOPHILS 0.5 %; BASOPHILS ABSOLUTE 0.07 10/3/uL (0.0-0.16); EOSINOPHILS 2.5 %; EOSINOPHILS ABSOLUTE 0.33 10/3/uL (0.0-0.53); HEMATOCRIT 30.9 % (40.0-51.0); HEMOGLOBIN 9.6 g/dL (13.6-17.8); IMMATURE GRANULOCYTES 0.5 %; IMMATURE GRANULOCYTES ABSOLUTE 0.07 10/3/uL (0.0-0.11); LYMPHOCYTES 13.5 %; LYMPHOCYTES ABSOLUTE 1.76 10/3/uL (0.67-4.30); MEAN CORPUS HGB CONC 31.1 g/dL (32.0-36.0); MEAN CORPUSCULAR HEMOGLOB 25.1 pg (26.0-34.0); MEAN CORPUSCULAR VOLUME 80.7 fL (80-100); MEAN PLATELET VOLUME 10.6 fL (9.2-13.0); MONOCYTES ABSOLUTE 0.78 10/3/uL (0.21-1.20); NEUTROPHILS ABSOLUTE 10.06 10/3/uL (2.02-8.40); PLATELET COUNT 174 10/3/uL (150-400); RBC DISTRIBUTION WIDTH 17.6 % (12.0-16.0); RED CELL COUNT 3.83 10/6/uL (4.7-6.1); WHITE BLOOD CELLS 13.1 10/3/uL (4.5-10.5)
[2016-06-24 07:31] LABS: MANUAL DIFF NO %
[2016-06-24 07:43] LABS: ALBUMIN 2.8 G/DL (3.5-5.0); BUN (BLOOD UREA NITROGEN) 21 MG/DL (6-23); CALCIUM, SERUM 7.6 MG/DL (8.5-10.4); CHLORIDE, SERUM 104 MMOL/L (96-112); CO2 (CARBON DIOXIDE) 27 MMOL/L (24-34); CREATININE 7.46 MG/DL (0.70-1.30); GFR AFRICAN AMERICAN 8 ML/MIN (>=60); GFR NON AFRICAN AMERICAN 7 ML/MIN (>=60); GLUCOSE, SERUM 84 MG/DL (60-99); PHOSPHORUS, SERUM 3.2 MG/DL (2.5-4.5); POTASSIUM, SERUM 4.8 MMOL/L (3.5-5.3); SODIUM, SERUM 142 MMOL/L (135-148)
[2016-06-25 09:20] LABS: BASOPHILS 0.2 %; BASOPHILS ABSOLUTE 0.03 10/3/uL (0.0-0.16); EOSINOPHILS ABSOLUTE 0.27 10/3/uL (0.0-0.53); HEMOGLOBIN 8.8 g/dL (13.6-17.8); IMMATURE GRANULOCYTES 0.3 %; IMMATURE GRANULOCYTES ABSOLUTE 0.04 10/3/uL (0.0-0.11); LYMPHOCYTES 11.9 %; LYMPHOCYTES ABSOLUTE 1.58 10/3/uL (0.67-4.30); MEAN CORPUS HGB CONC 31.9 g/dL (32.0-36.0); MEAN CORPUSCULAR HEMOGLOB 25.3 pg (26.0-34.0); MEAN CORPUSCULAR VOLUME 79.3 fL (80-100); MONOCYTES 5.4 %; MONOCYTES ABSOLUTE 0.72 10/3/uL (0.21-1.20); NEUTROPHILS 80.2 %; NEUTROPHILS ABSOLUTE 10.68 10/3/uL (2.02-8.40); PLATELET COUNT 165 10/3/uL (150-400); RBC DISTRIBUTION WIDTH 17.4 % (12.0-16.0); RED CELL COUNT 3.48 10/6/uL (4.7-6.1); WHITE BLOOD CELLS 13.3 10/3/uL (4.5-10.5)
[2016-06-25 09:21] LABS: HEMATOCRIT 27.6 % (40.0-51.0); MANUAL DIFF NO %
[2016-06-25 09:38] LABS: ALBUMIN 2.8 G/DL (3.5-5.0); ALKALINE PHOSPHATASE 157 U/L (45-117); BUN (BLOOD UREA NITROGEN) 27 MG/DL (6-23); CALCIUM, SERUM 7.3 MG/DL (8.5-10.4); CHLORIDE, SERUM 106 MMOL/L (96-112); CO2 (CARBON DIOXIDE) 23 MMOL/L (24-34); DIRECT BILIRUBIN 0.2 MG/DL (0.0-0.4); GFR AFRICAN AMERICAN 6 ML/MIN (>=60); GFR NON AFRICAN AMERICAN 5 ML/MIN (>=60); GLUCOSE, SERUM 88 MG/DL (60-99); INDIRECT BILIRUBIN(NOT ORDER) 0.6 MG/DL (0.1-0.9); PHOSPHORUS, SERUM 2.7 MG/DL (2.5-4.5); POTASSIUM, SERUM 4.4 MMOL/L (3.5-5.3); SGOT(AST) 15 U/L (5-40); SGPT(ALT) 11 U/L (5-65); SODIUM, SERUM 141 MMOL/L (135-148); TOTAL BILIRUBIN 0.8 MG/DL (0-1.2); TOTAL PROTEIN 8.8 G/DL (6.0-8.5)
[2016-11-13] MEDS ORDERED: BACTRIM DS1 TAB PO (10:54)
[2016-11-13] MEDS ORDERED: PCET PO (10:55)
[2016-12-24] MEDS ORDERED: NORCO1 TA1 PO (13:26)
== END 2016-06-25 15:24 | disposition home or self-care (01) | DRG 252 ==
LOC: ER 16:24 → CDU1 17:55 → 4SO 06-16 15:28
PROVIDERS: Emergency Medicine; Internal Medicine Cardiovascular Disease; Internal Medicine Nephrology; Nurse Practitioner; Registered Nurse; Specialist
PROC: 5A1D60Z (ICD-10-PCS; 2016-06-15)
PROC: B24BZZ4 Ultrasonography of Heart with Aorta, Transesophageal (ICD-10-PCS; 2016-06-18)
PROC: 05HY33Z Insertion of Infusion Device into Upper Vein, Percutaneous Approach (ICD-10-PCS; 2016-06-21)
PROC: 05PY03Z Removal of Infusion Device from Upper Vein, Open Approach (ICD-10-PCS; principal; 2016-06-21 06:45)
PROC: B51W1ZZ Fluoroscopy of Dialysis Shunt/Fistula using Low Osmolar Contrast (ICD-10-PCS; 2016-06-23)
PROC: 0HQEXZZ Repair Left Lower Arm Skin, External Approach (ICD-10-PCS; 2016-06-23)
DX: T82.7XXA Infection and inflammatory reaction due to other cardiac and vascular devices, implants and grafts, initial encounter (principal); A41.02 Sepsis due to Methicillin resistant Staphylococcus aureus; I50.23 Acute on chronic systolic (congestive) heart failure; I12.0 Hypertensive chronic kidney disease with stage 5 chronic kidney disease or end stage renal disease; N18.6 End stage renal disease; I42.9 Cardiomyopathy, unspecified; L97.211 Non-pressure chronic ulcer of right calf limited to breakdown of skin; Y83.2 Surgical operation with anastomosis, bypass or graft as the cause of abnormal reaction of the patient, or of later complication, without mention of misadventure at the time of the procedure; Z99.2 Dependence on renal dialysis; D63.1 Anemia in chronic kidney disease; Z95.0 Presence of cardiac pacemaker; E21.3 Hyperparathyroidism, unspecified; Z85.46 Personal history of malignant neoplasm of prostate; M10.9 Gout, unspecified; I25.10 Atherosclerotic heart disease of native coronary artery without angina pectoris; Z79.891 Long term (current) use of opiate analgesic; K52.9 Noninfective gastroenteritis and colitis, unspecified; L94.2 Calcinosis cutis; I48.91 Unspecified atrial fibrillation
CPT/HCPCS: 13160; 35903; 36832; 36901; 71010; 80053; 80069; 80076; 80202; 82330; 82962; 83605; 83735; 83880; 83970; 84145; 84436; 84443; 85025; 85610; 87015; 87040; 87070; 87075; 87077; 87102; 87116; 87150; 87186; 87205; 87804; 87880; 93005; 93306; 93312; 93320; 93325; 97605; 99285; A9270-GY; C1768; G0257; J0885; J2270; J2370; J2405; J2543; J2550; J3010; J3370; P9047; Q9966